=== PATIENT | male | born 1995 | race Caucasian/White ===

== ENCOUNTER 2017-12-07 10:56 | Emergency (ER) | payer OTHER ==
[~2017-12-07] VITALS: Ht 177.8 cm; Wt 63.0 kg
[2017-12-07] MEDS ORDERED: IBUPROFEN 600MG TABLET PO STA (15:06)
[2017-12-07] MEDS ORDERED: LIDOCAINE HCL 1% 20ML VIAL (Pyxis) INJ MC ONE (15:15)
[2017-12-07] MEDS ORDERED: BACITRACIN ZINC OINT UDPKT TOP ONE (15:15)
[2017-12-07 17:09] VITALS: BP 118/74
== END 2017-12-07 17:27 | disposition home or self-care (01) ==
LOC: ER 12:52
DX: S61.214A Laceration without foreign body of right ring finger without damage to nail, initial encounter (principal); S61.216A Laceration without foreign body of right little finger without damage to nail, initial encounter; Z87.828 Personal history of other (healed) physical injury and trauma; W25.XXXA Contact with sharp glass, initial encounter; Y93.89 Activity, other specified; Y92.018 Other place in single-family (private) house as the place of occurrence of the external cause
CPT/HCPCS: 12002; 73130; 99284; J3490

== ENCOUNTER 2018-07-29 08:34 | Emergency (ER) | payer OTHER ==
[~2018-07-29] VITALS: Ht 210.8 cm; Wt 68.0 kg
[2018-07-29] MEDS ORDERED: SODIUM CHLORIDE 0.9% 1,000 ML IV ONE (10:23)
[2018-07-29] MEDS ORDERED: MORPHINE SULFATE 4 MG/ML CPJ (NOT FOR IM USE) IV STA (10:23)
[2018-07-29] MEDS ORDERED: ONDANSETRON HCL 4MG/2ML INJ IV STA (10:23)
[2018-07-29] MEDS ORDERED: PIPERACILLIN/TAZ 3.375G PREMIX 50 ML IV ONE (10:30)
[2018-07-29] MEDS ORDERED: VANCOMYCIN 1 G PREMIX 200 ML IV ONE (10:30)
[2018-07-29] MEDS ORDERED: KETOROLAC 30MG/ML VIAL IV ONE (10:30)
[2018-07-29 11:14] LABS: BASOPHILS % 0.4 % (0.0-2.0); EOSINOPHILS % 3.1 % (0.0-5.0); HEMATOCRIT. 40.3 % (42.0-52.0); HEMOGLOBIN. 13.7 g/dL (14.0-18.0); LYMPHOCYTES % 9.5 % (20.0-50.0); MEAN CORPUSCULAR HEMOGLOBIN 30.8 pg (28.0-32.0); MEAN CORPUSCULAR VOLUME 90.9 fL (80.0-94.0); MEAN PLATELET VOLUME 8.9 fl (7.4-10.4); PLATELET 269 x1000/uL (130-400); RED BLOOD CELL COUNT 4.44 mill/uL (4.7-6.1); RED CELL DISTRIBUTION WIDTH 13.3 % (11.6-14.6)
[2018-07-29 11:17] LABS: INR 1.1; PROTHROMBIN TIME 11.4 sec (9.1-11.1)
[2018-07-29 11:22] LABS: CHLORIDE 100 mEq/L (98-107)
[2018-07-29] MEDS ORDERED: LIDOCAINE 1%/EPI 1:100,000 10 ML VIAL IJ ONE (13:00)
[2018-07-29] MEDS ORDERED: BACITRACIN ZINC OINT UDPKT TOP ONE (13:00)
[2018-07-29] MEDS ORDERED: LIDOCAINE HCL/EPINEPHRINE 1%-EPI 1:100,000 20 ML VIAL INFIL NR (13:18)
[2018-07-29] MEDS ORDERED: IOHEXOL-300 100 ML BOTTLE ONE (13:39)
[2018-07-29 14:45] VITALS: BP 119/74
== END 2018-07-29 14:50 | disposition home or self-care (01) ==
LOC: ER 10:48
DX: L02.811 Cutaneous abscess of head [any part, except face] (principal); H70.892 Other mastoiditis and related conditions, left ear; R03.0 Elevated blood-pressure reading, without diagnosis of hypertension
CPT/HCPCS: 10060; 36415; 70460; 70487; 70491; 80053; 83605; 84145; 85025; 85610; 87040; 99285; J1885; J2270; J2405; J2543; J3370; J3490; J7030; Q9967

== ENCOUNTER 2019-06-22 06:53 | Emergency (ER) | payer OTHER, MEDICAID ==
[~2019-06-22] VITALS: Ht 180.3 cm; Wt 68.0 kg
[2019-06-22] MEDS ORDERED: KETOROLAC 60MG/2ML VIAL IM STA (07:19)
[2019-06-22] MEDS ORDERED: PIPERACILLIN/TAZ 3.375G PREMIX 50 ML IV ONE (08:30)
[2019-06-22] MEDS ORDERED: VANCOMYCIN 1 G PREMIX 200 ML IV ONE (08:30)
[2019-06-22 09:50] LABS: BASOPHILS % 0.5 % (0.0-2.0); EOSINOPHILS % 3.7 % (0.0-5.0); HEMATOCRIT. 40.2 % (42.0-52.0); HEMOGLOBIN. 13.7 g/dL (14.0-18.0); LYMPHOCYTES % 7.9 % (20.0-50.0); MEAN CORPUSCULAR HEMOGLOBIN 31.3 pg (28.0-32.0); MEAN PLATELET VOLUME 8.9 fl (7.4-10.4); MONOCYTES % 7.6 % (2.0-8.0); NEUTROPHILS % 80.3 % (40.0-76.0); PLATELET 242 x1000/uL (130-400); RED BLOOD CELL COUNT 4.37 mill/uL (4.7-6.1); RED CELL DISTRIBUTION WIDTH 13.4 % (11.6-14.6)
[2019-06-22 09:54] LABS: CHLORIDE 108 mEq/L (98-107)
[2019-06-22] MEDS ORDERED: MORPHINE SULFATE 4 MG/ML CPJ (NOT FOR IM USE) IV STA (11:18)
[2019-06-22] MEDS ORDERED: HYDROCODONE/ACETAMINOPHEN 5/325MG TABLET PO STA (13:37)
[2019-06-22] MEDS ORDERED: ONDANSETRON HCL 4MG/2ML INJ IV STA (13:37)
[2019-06-22 13:50] VITALS: BP 136/80
== END 2019-06-22 13:55 | disposition short-term general hospital (02) ==
LOC: ER 06:53
DX: M79.644 Pain in right finger(s) (principal); S67.02XA Crushing injury of left thumb, initial encounter; X58.XXXA Exposure to other specified factors, initial encounter; Y93.89 Activity, other specified; Y92.89 Other specified places as the place of occurrence of the external cause; Y99.8 Other external cause status
CPT/HCPCS: 36415; 73130; 80053; 85025; 87040; 96365; 96367; 96372; 96375; 99285; J1885; J2270; J2543; J3370

== ENCOUNTER 2020-03-24 03:40 | Emergency (ER) | payer OTHER, MEDICAID | END 2020-03-24 04:22 | disposition left against medical advice (07) | LOC: ER 04:16 | DX: Z53.21 Procedure and treatment not carried out due to patient leaving prior to being seen by health care provider (principal) ==

== ENCOUNTER 2021-01-15 18:29 | Emergency (ER) | payer OTHER, MEDICAID ==
[~2021-01-15] VITALS: Ht 180.3 cm; Wt 68.0 kg
[2021-01-15 18:34] VITALS: BP 146/89
[2021-01-15] MEDS ORDERED: ACETAMINOPHEN 500MG TABLET PO ONE (22:30)
== END 2021-01-15 22:05 | disposition left against medical advice (07) ==
LOC: ER 18:29
DX: Z53.21 Procedure and treatment not carried out due to patient leaving prior to being seen by health care provider (principal)

== ENCOUNTER 2025-04-12 19:58 | Emergency (ER) | payer MEDICAID, OTHER ==
[~2025-04-12] VITALS: Ht 182.9 cm; Wt 150.0 kg
[2025-04-12 20:14] VITALS: O2SAT 97
[2025-04-12] MEDS: KETOROLAC 15MG/ML VIAL IM ONE (22:14)
[2025-04-12] MEDS ORDERED: NAPR-1176 MT (22:51)
[2025-04-12] MEDS ORDERED: LIDO-53 TP (22:51)
[2025-04-13 00:57] VITALS: BP 112/51; PULSE 61; RESP 18; TEMP 36.6; O2SAT 100
== END 2025-04-13 01:04 | disposition home or self-care (01) ==
LOC: ER 19:58
DX: M25.571 Pain in right ankle and joints of right foot (principal); F10.90 Alcohol use, unspecified, uncomplicated; Z79.899 Other long term (current) drug therapy; Z79.1 Long term (current) use of non-steroidal anti-inflammatories (NSAID); Y90.9 Presence of alcohol in blood, level not specified
CPT/HCPCS: 99283; 73610; 96372; J1885